=== PATIENT | female | born 1965 ===

== ENCOUNTER 2020-02-15 11:29 | Outpatient (REF) | payer OTHER, SELFPAY ==
[2020-02-19 22:16] LABS: SARS-CoV-2 RNA Undetected (Undetected); SARS-CoV-2 Specimen Source Nasal
== END 2020-02-15 11:49 ==
LOC: NCHCN 11:29
PROVIDERS: Visit Provider Internal Medicine
DX: Z20.828 Contact with and (suspected) exposure to other viral communicable diseases (principal)
CPT/HCPCS: U0003